=== PATIENT | male | born 1950 | race Caucasian/White ===

== ENCOUNTER 2019-02-23 08:49 | Emergency (ER) | payer MEDICARE ==
[~2019-02-23] VITALS: Ht 167.6 cm; Wt 118.4 kg
[2019-02-23] MEDS ORDERED: METFORMIN HCL1000 MG PO (09:04)
[2019-02-23] MEDS ORDERED: ATENOLOL50 MG PO (09:05)
[2019-02-23] MEDS ORDERED: ZESTRIL5 MG PO (09:05)
== END 2019-02-23 10:57 | disposition home or self-care (01) ==
LOC: ED 08:49
DX: I16.0 Hypertensive urgency (principal); I10 Essential (primary) hypertension; E11.9 Type 2 diabetes mellitus without complications; Z79.899 Other long term (current) drug therapy; Z79.84 Long term (current) use of oral hypoglycemic drugs
CPT/HCPCS: 70450; 80053; 83690; 85025; 96374; 96375; 99284-25; J2405